=== PATIENT | female | born 1945 | race Caucasian/White ===

== ENCOUNTER 2018-10-11 09:00 | Outpatient (RCR) | payer MEDICARE, OTHER ==
--- NOTE | 2018-10-09 13:41 | NUR ---
Pt. in for 1:1. Vital signs completed. DIEHL completed. Pt. is clean and neat. Alert and oriented times 3. Mood happy. Affect mildly bright. Pt. states she is doing much better. Pt. states concern about side effects of psych meds. Patient education handouts on Xanax and Effexor given to Pt. Program Nurse is encouraging Pt. to come in for a Medication review to discuss concerns with Maddie Knutson APRN.
[~2018-10-11 09:00] MED LIST: AMBIEN10 MG PO; AMBIEN5 MG PO; AMLODIPINE5 MG PO; ASPIRIN ADULT L81 M3 PO; ASPIRIN325 MG PO; ASPIRIN81 M1 OR; BABY ASPIRIN81 MG OR; BUSPAR5 M1 PO; BYETTA10 MCG SC; CELEXA40 M1 PO; CEPHALEXIN500 MG OR; CRESTOR20 MG OR; DOXYCYC MONO100 M1 OR; DOXYCYC MONO100 M2 PO; EFFEXOR XR150 MG PO; ELAVIL25 M1 PO; FISH OIL CON1000 MG OR; FISH OIL CON300 MG OR; GLUCOPHAGE500 MG OR; JARDIANCE10 MG PO; L-THYROXINE PO; LEVOTHROID100 MCG OR; LEXAPRO10 MG PO; LEXAPRO5 MG PO; LISINOPRIL20 M1 PO; LISINOPRIL20 MG OR; PAXIL20 MG OR; PRAVASTATIN SOD10 MG PO; PROZAC40 MG PO; SM ASPIRIN325 M1 OR; TEMAZEPAM30 MG PO; VENLAFAXINE150 M1 PO; VENLAFAXINE75 M1 PO; XANAX PO; XANAX0.25 MG PO; ZESTRIL40 MG PO
--- NOTE | 2018-10-11 13:50 | NUR ---
Pt. in for medication review. Pt. discussed side effects with Maddie Knutson APRN. Pt. given schedule to wean off Effexor. Pt. is clean and neat. Alert and oriented times 3. Affect is apprehensive. Mood improving. Pt. to follow up medication review in one month,
[2018-10-14] MEDS ORDERED: BUSPAR5 MG PO (12:23)
[2018-11-05 12:25] VITALS: BP 124/63
[2018-12-03] MEDS ORDERED: ZESTRIL40 MG PO (11:16)
[2018-12-03] MEDS ORDERED: JARDIANCE10 MG PO (11:17)
[2018-12-03] MEDS ORDERED: CALCIUM/D3600 MG PO (11:19)
[2018-12-03] MEDS ORDERED: VITAMIN D32000 UNIT PO (11:20)
== END 2018-10-31 23:59 | disposition still patient (30) ==
LOC: SLIP3 09:00
PROVIDERS: ATTEND Specialist
DX: F41.1 Generalized anxiety disorder (principal); F33.0 Major depressive disorder, recurrent, mild

== ENCOUNTER → 2018-10-22 | Outpatient (REF) | payer MEDICARE, OTHER ==
[~2018-10-22] MED LIST changes: +BUSPAR5 MG PO; +CALCIUM/D3600 MG PO; +VITAMIN D32000 UNIT PO
[2018-10-22 14:43] LABS: HEMATOCRIT 46.1 % (37.0-47.0); HEMOGLOBIN 15.6 g/dl (12.0-16.0); IMMATURE GRANULOCYTES 0.2 % (0.0-5.0); MEAN CELL VOLUME 98.7 fL CALC (80.0-100.0); MEAN CORPUSCULAR HGB 33.4 pG CALC (26.0-32.0); MEAN CORPUSCULAR HGB CONC 33.8 g/L CALC (32.0-36.0); NEUT# 4.54 thou/uL (2.00-7.15); RED BLOOD COUNT 4.67 mill/uL (4.20-5.60); RED CELL DISTRI WIDTH 12.2 % (11.5-15.5)
[2018-10-22 14:56] LABS: ALBUMIN 4.9 g/dL (3.2-5.0); ALKALINE PHOSPHATASE 95 u/l (38-126); ANION GAP 18 (6-22 (CALC)); BUN 16 mg/dL (8-23); BUN/CREATININE RATIO 30 (12-20 (CALC)); CALCULATED LDLCHOLESTEROL 167 mg/dL (62-129 (CALC)); CARBON DIOXIDE 25 mmol/l (22-30); CHLORIDE 97 mmol/l (95-108); CHOLESTEROL HDL RATIO 3.5 (<4.4 (CALC)); CREATININE 0.6 mg/dL (0.5-1.0); GFR > 60 ML/MIN (>=60 (CALC)); GFR FOR AFR.AMER. > 60 ML/MIN (>=60 (CALC)); HDL CHOLESTEROL 73 mg/dL (>=40); POTASSIUM 4.3 mmol/l (3.5-5.1); SGOT/AST 34 u/l (9-36); SODIUM 136 mmol/l (137-146); TOTAL CHOLESTEROL 254 mg/dl (0-199); TOTAL PROTEIN 8.3 g/dL (6.3-8.2); TOTAL TRIGLYCERIDES 73 mg/dl (30-149); VLDL CHOLESTROL 15 mg/dl (0-48 (CALC))
[2018-10-22 15:24] LABS: TSH, 3RD GENERATION 1.45 uIU/mL (0.47 - 4.68)
== END | disposition home or self-care (01) ==
LOC: LAB 13:42
PROVIDERS: ATTEND Nurse Practitioner Family
DX: E11.40 Type 2 diabetes mellitus with diabetic neuropathy, unspecified (principal); E11.9 Type 2 diabetes mellitus without complications; E78.2 Mixed hyperlipidemia; F32.9 Major depressive disorder, single episode, unspecified; F41.9 Anxiety disorder, unspecified; I10 Essential (primary) hypertension; M19.079 Primary osteoarthritis, unspecified ankle and foot; R94.5 Abnormal results of liver function studies; M81.0 Age-related osteoporosis without current pathological fracture

== ENCOUNTER 2024-11-12 20:46 | Observation (INO) | payer MEDICARE, OTHER ==
[~2024-11-12] VITALS: Ht 157.5 cm; Wt 83.6 kg
[~2024-11-12 20:46] MED LIST changes: +BIOTIN5000 MC1 PO; +BUSPAR30 MG PO; +BUSPIRONE15 MG PO; +CELEXA20 M1 PO; -L-THYROXINE PO; +LEVOTHYROXIN75 MC1 PO; +LISINOPRIL40 MG PO
[2024-11-12 20:50] VITALS: BP 99/83
[2024-11-12 21:01] VITALS: BP 140/70
[2024-11-12 21:22] LABS: BASO% 0.2 % (0-3); EOS% 1.5 % (0-8); HEMATOCRIT 41.5 % (37.0-47.0); HEMOGLOBIN 14.1 g/dl (12.0-16.0); IMMATURE GRANULOCYTES 0.2 % (0.0-5.0); LYMPH% 9.9 % (15-41); MEAN CELL VOLUME 99.3 fL CALC (80.0-100.0); MEAN CORPUSCULAR HGB 33.7 pG CALC (26.0-32.0); MONO% 8.1 % (2-13); NEUT# 7.04 thou/uL (2.00-7.15); NEUT% 80.1 % (42-76); RED BLOOD COUNT 4.18 mill/uL (4.20-5.60); RED CELL DISTRI WIDTH 12.4 % (11.5-15.5)
[2024-11-12 21:31] VITALS: BP 141/63
[2024-11-12 21:32] LABS: ALBUMIN 4.3 g/dL (3.2-5.0); BILIRUBIN, TOTAL 0.8 mg/dL (0.02-1.3); CPK 294 u/l (30-135); CREATININE 0.7 mg/dL (0.5-1.0); TOTAL PROTEIN 7.2 g/dL (6.3-8.2)
[2024-11-12] MEDS ORDERED: ACETAMINOPHEN 500 MG TAB PO ONE (21:45)
[2024-11-12] MEDS ORDERED: KETOROLAC TROMETHAMINE 15 MG/ML SDV IM ONE (21:50)
[2024-11-12 22:01] VITALS: BP 119/77
[2024-11-12 22:30] VITALS: BP 116/81
[2024-11-12 23:01] VITALS: BP 180/71
[2024-11-12 23:19] LABS: URINE BLOOD DIPSTICK Small (NEGATIVE); URINE GLUCOSE - DIPSTICK Negative (NEGATIVE); URINE KETONE Trace mg/dL (NEGATIVE); URINE PROTEIN - DIPSTICK 30 mg/dL (NEG-TRACE); URINE UROBILINOGEN - DIPSTICK 0.2 E.U./dL (0.2)
[2024-11-12 23:30] LABS: URINE COLOR Yellow; URINE LEUK ESTERASE Small (NEGATIVE); URINE NITRITE - DIPSTICK Positive (Negative)
[2024-11-12 23:31] LABS: URINE BACTERIA MANY hpf; URINE BILIRUBIN - DIPSTICK Negative (NEGATIVE); URINE EPITHELIAL CELLS MODERATE EPI/hpf (0-FEW)
[2024-11-13] VITALS (12 sets, daily range): BP systolic 114–163; BP diastolic 51–131
[2024-11-13] MEDS ORDERED: ONDANSETRON HCl 4 MG/2 ML SDV IV PRN (00:35)
[2024-11-13] MEDS ORDERED: ONDANSETRON 4 MG/TAB ODT PO PRN (00:35)
[2024-11-13] MEDS ORDERED: IBUPROFEN 800 MG/TAB PO PRN (00:35)
[2024-11-13] MEDS ORDERED: FAMOTIDINE 10MG/ML 2ML SDV IV PRN (00:35)
[2024-11-13] MEDS ORDERED: ALUM & MAG HYDROX-SIMETHICONE 30 ML PO PRN (00:35)
[2024-11-13] MEDS ORDERED: Polyethylene Glycol 3350 17 GM/PKT PO PRN (00:35)
[2024-11-13] MEDS ORDERED: TRAZODONE100 MG PO (01:15)
[2024-11-13] MEDS ORDERED: HYDROXYZ HCL25 MG PO (01:15)
[2024-11-13] MEDS ORDERED: ATORVASTATIN CA20 MG PO (01:17)
[2024-11-13] MEDS ORDERED: WELLBUTRIN XL300 MG (01:18)
[2024-11-13] MEDS ORDERED: predniSONE 20 MG/TAB PO SCH (11:00)
[2024-11-13] MEDS ORDERED: ABILIFY5 MG PO (14:06)
[2024-11-13] MEDS ORDERED: buPROPion HCL 150 MG TAB SR PO SCH (14:30)
[2024-11-13] MEDS ORDERED: FLUoxetine HCL 10 MG/CAP PO SCH (14:30)
[2024-11-13] MEDS ORDERED: HYDROcodone 5 MG/Acetaminophen 325 MG/COMBO PO PRN (18:25)
[2024-11-13] MEDS ORDERED: DEXTROSE 250 ML IV PRN (20:35)
[2024-11-13] MEDS ORDERED: ATORVASTATIN CALCIUM 20 MG/TAB PO SCH (21:00)
[2024-11-13] MEDS ORDERED: hydrOXYzine HCL 25 MG/TAB PO SCH ×2 (21:00→21:04)
[2024-11-13] MEDS ORDERED: traZODone HCL 50 MG/TAB PO SCH (21:00)
[2024-11-13] MEDS ORDERED: INSULIN LISPRO 100 UNITS/ML ML SC SCH (21:00)
[2024-11-14 00:20] VITALS: BP 123/51
[2024-11-14 04:02] VITALS: BP 128/51
[2024-11-14 06:06] LABS: BASO% 0.1 % (0-3); EOS% 0.1 % (0-8); HEMATOCRIT 40.5 % (37.0-47.0); HEMOGLOBIN 13.6 g/dl (12.0-16.0); IMMATURE GRANULOCYTES 0.1 % (0.0-5.0); LYMPH% 4.8 % (15-41); MEAN CELL VOLUME 97.8 fL CALC (80.0-100.0); MEAN CORPUSCULAR HGB 32.9 pG CALC (26.0-32.0); MEAN CORPUSCULAR HGB CONC 33.6 g/dL CAL (32.0-36.0); MONO% 3.5 % (2-13); NEUT# 10.24 thou/uL (2.00-7.15); NEUT% 91.4 % (42-76); RED BLOOD COUNT 4.14 mill/uL (4.20-5.60); RED CELL DISTRI WIDTH 11.9 % (11.5-15.5)
[2024-11-14 06:14] VITALS: BP 128/51
[2024-11-14 06:19] LABS: ALBUMIN 3.9 g/dL (3.2-5.0); BILIRUBIN, TOTAL 0.7 mg/dL (0.02-1.3); CREATININE 0.5 mg/dL (0.5-1.0); MAGNESIUM 2.1 mg/dL (1.6-2.3); POTASSIUM 4.1 mmol/l (3.5-5.1); TOTAL PROTEIN 6.8 g/dL (6.3-8.2)
[2024-11-14] MEDS ORDERED: hydrOXYzine HCL 25 MG/TAB PO SCH (09:00)
[2024-11-14] MEDS ORDERED: LISINOPRIL 20 MG/TAB PO SCH (09:00)
[2024-11-14] MEDS ORDERED: HYDROcodone 5 MG/Acetaminophen 325 MG/COMBO PO SCH (10:35)
[2024-11-14] MEDS ORDERED: NICOTINE TRANSDERMAL 21 MG/PATCH TD SCH (12:30)
[2024-11-14 19:34] VITALS: BP 114/50
[2024-11-14] MEDS ORDERED: ASPIRIN 325 MG/TAB PO SCH (21:00)
[2024-11-15 00:07] VITALS: BP 115/51
[2024-11-15 03:45] VITALS: BP 119/43
[2024-11-15 05:39] LABS: ALBUMIN 3.9 g/dL (3.2-5.0); BASO% 0.1 % (0-3); BILIRUBIN, TOTAL 0.6 mg/dL (0.02-1.3); CREATININE 0.5 mg/dL (0.5-1.0); EOS% 0.3 % (0-8); HEMATOCRIT 40.4 % (37.0-47.0); HEMOGLOBIN 13.2 g/dl (12.0-16.0); IMMATURE GRANULOCYTES 0.1 % (0.0-5.0); LYMPH% 6.7 % (15-41); MAGNESIUM 2.2 mg/dL (1.6-2.3); MEAN CELL VOLUME 102.8 fL CALC (80.0-100.0); MEAN CORPUSCULAR HGB 33.6 pG CALC (26.0-32.0); MEAN CORPUSCULAR HGB CONC 32.7 g/dL CAL (32.0-36.0); MONO% 3.7 % (2-13); NEUT# 7.7 thou/uL (2.00-7.15); NEUT% 89.1 % (42-76); POTASSIUM 4.4 mmol/l (3.5-5.1); RED BLOOD COUNT 3.93 mill/uL (4.20-5.60); RED CELL DISTRI WIDTH 12.7 % (11.5-15.5); TOTAL PROTEIN 6.8 g/dL (6.3-8.2)
[2024-11-15 07:00] VITALS: BP 119/49
[2024-11-15] MEDS ORDERED: LORTAB5 PO (09:16)
[2024-11-15] MEDS ORDERED: PREDNISONE20 MG PO (09:16)
[2024-11-15] MEDS ORDERED: KEFLEX500 MG PO (09:16)
[2024-11-15 10:48] VITALS: BP 118/64
[2024-11-15 10:55] VITALS: BP 118/64
[2024-11-15 14:21] VITALS: BP 134/55
== END 2024-11-15 14:36 ==
LOC: ED 20:46 → ED-I 11-13 00:19 → ED 11-13 00:34 → MS2 11-13 00:35
PROVIDERS: Internal Medicine; Nurse Practitioner Family; ADMIT Internal Medicine; ATTEND Internal Medicine
DX: N39.0 Urinary tract infection, site not specified (principal); B96.1 Klebsiella pneumoniae [K. pneumoniae] as the cause of diseases classified elsewhere; R53.1 Weakness; M25.561 Pain in right knee; S40.022A Contusion of left upper arm, initial encounter; I10 Essential (primary) hypertension; E11.9 Type 2 diabetes mellitus without complications; E78.5 Hyperlipidemia, unspecified; I67.1 Cerebral aneurysm, nonruptured; F17.200 Nicotine dependence, unspecified, uncomplicated; M17.11 Unilateral primary osteoarthritis, right knee; F32.A Depression, unspecified; W19.XXXA Unspecified fall, initial encounter; Y92.009 Unspecified place in unspecified non-institutional (private) residence as the place of occurrence of the external cause; Z79.84 Long term (current) use of oral hypoglycemic drugs; Z95.828 Presence of other vascular implants and grafts; Z91.81 History of falling
CPT/HCPCS: G0378; J0696; J1815; J1885